=== PATIENT | male | born 1975 | race Caucasian/White ===

== ENCOUNTER 2023-10-25 03:12 | Emergency (ER) | payer OTHER ==
[~2023-10-25] VITALS: Ht 185.4 cm; Wt 127.0 kg
[2023-10-25 03:17] VITALS: BP 109/70; PULSE 108; RESP 18; TEMP 98.1; O2SAT 98
== END 2023-10-25 05:14 | disposition home or self-care (01) ==
LOC: ER 03:17
DX: S00.81XA Abrasion of other part of head, initial encounter (principal); M25.562 Pain in left knee; M25.561 Pain in right knee; X58.XXXA Exposure to other specified factors, initial encounter; Y93.89 Activity, other specified; Y92.89 Other specified places as the place of occurrence of the external cause; Y99.8 Other external cause status
CPT/HCPCS: 73560; 99283